=== PATIENT | female | born 1965 | race Caucasian/White ===

== ENCOUNTER → 2020-12-07 09:05 | Outpatient (CLI) | payer OTHER, SELFPAY ==
[2020-12-07 10:09] LABS: Absolute Lymphocyte Count 1.14 X10^3/uL (0.83-4.51); Absolute Neutrophil Count 2.5 X10^3/uL (2.0-7.7); Basophil# 0.06 X10^3/uL; Basophil% 1.4 % (0-1); Eosinophil# 0.13 X10^3/uL; Eosinophils% 3.1 % (0-5); Hematocrit 44.5 % (37-47); Hemoglobin 14.4 g/dL (12.0-15.0); Lymphocyte # 1.14 X10^3/ul (0.83-4.51); Lymphocyte % 27.2 % (19-41); Mean Corp Hgb Conc 32.4 g/dL (32-36); Mean Corpuscular Hgb 30.4 pg (27.0-32.0); Mean Corpuscular Volume 93.9 fL (81-99); Monocyte# 0.37 X10^3/uL; Monocyte% 8.8 % (0-10); NRBC Flagged by Analyzer 0 % (0-5); Neutrophil # 2.47 X10^3/uL (2.7-7.7); Platelet Count 289 K/mm3 (150-450); RBC Distribution Width CV 13.2 % (11.6-14.6); RBC Distribution Width SD 45.6 fl (35.1-43.9); Red Blood Count 4.74 M/mm3 (4.2-5.4); White Blood Count 4.2 K/mm3 (4.4-11.0)
[2020-12-07 10:46] LABS: ALB/GLOB Ratio 1.1 RATIO (0.9-2.4); AST(SGOT) 28 U/L (15-37); Alanine Aminotransfer ALT/SGPT 26 U/L (13-56); Albumin, Serum 3.7 g/dL (3.2-5.0); Alkaline Phosphatase 76 U/L (45-117); Anion Gap 2 (5-15); BUN 15 mg/dL (7-18); BUN/Creat Ratio 17.7 RATIO (10-20); Calcium,Total 8.8 mg/dL (8.5-10.1); Chloride 106 mmol/L (98-107); Cholesterol 328 mg/dL (200); Creatinine, Serum 0.85 mg/dL (0.55-1.02); EST Glomerular Filtration Rate 74 mL/min (>60); Est Glom Filt Rate - Afr Amer 90 mL/min (>60); Ferritin 88 ng/mL (8-252); Globulin 3.3 g/dL (2.2-4.2); Glucose 99 mg/dL (74-106); High Density Lipoprotein 68 mg/dL; Potassium 4.4 mmol/L (3.5-5.1); Sodium Level 137 mmol/L (136-145); Thyroid Stim Hormone (TSH) 4.23 uIU/mL (0.358-3.74); Triglycerides 193 mg/dL; Very Low Density Lipoprotein 39 mg/dL (5-40)
[2020-12-12 14:16] LABS: T4 Free Direct 0.93 ng/dL (0.76-1.46)
== END ==
PROVIDERS: PCP Family Medicine; Referring Provider Family Medicine; Visit Provider Family Medicine
DX: G47.9 Sleep disorder, unspecified (principal); Z13.220 Encounter for screening for lipoid disorders
CPT/HCPCS: 36415; 80053; 80061; 82728; 84439; 84443; 85025

== ENCOUNTER → 2021-03-08 09:55 | Outpatient (CLI) | payer OTHER, SELFPAY ==
[2021-03-08 12:43] LABS: Cholesterol 261 mg/dL (200); High Density Lipoprotein 65 mg/dL; T4 Free Direct 0.85 ng/dL (0.76-1.46); Thyroid Stim Hormone (TSH) 2.78 uIU/mL (0.358-3.74); Triglycerides 196 mg/dL; Very Low Density Lipoprotein 39 mg/dL (5-40)
== END ==
PROVIDERS: PCP Family Medicine; Referring Provider Family Medicine; Visit Provider Family Medicine
DX: E78.00 Pure hypercholesterolemia, unspecified (principal); R79.89 Other specified abnormal findings of blood chemistry
CPT/HCPCS: 36415; 80061; 84439; 84443

== ENCOUNTER → 2021-12-22 | Outpatient (CLI) | payer OTHER, SELFPAY | END | disposition home or self-care (01) | LOC: MFPLAB 09:39 | PROVIDERS: PCP Family Medicine; Referring Provider Family Medicine; Visit Provider Family Medicine | DX: Z00.00 Encounter for general adult medical examination without abnormal findings (principal) ==

== ENCOUNTER → 2022-02-02 | Outpatient (CLI) | payer OTHER, SELFPAY ==
--- NOTE | 2022-02-02 13:08 | CT_ITS ---
STUDY: LOW DOSE CT LUNG CANCER SCREENING REASON FOR EXAM: Female, 56 years old. TOBACCO USE. Patient smoked 1 pack per day for 30 years. RADIATION DOSAGE (If Supplied By Facility): CTDIvol = ( 3.02 ) mGy, DLP = ( 106.46 ) mGycm TECHNIQUE: No contrast was administered. Low dose technique was utilized (average mAS-38 and kVp 120). 1.25 mm axial source images with a slice interval of 1.25-mm were reconstructed in lung windows. 2.5 mm axial source images with a slice interval of 2.5-mm were reconstructed in lung windows. 5.0 mm axial source images with a slice interval of 5.0-mm were reconstructed in soft tissue windows. COMPARISON: None. NODULES: No suspicious nodules are seen. Total lung nodules (excluding granulomas): There is a 7.7 mm calcified granuloma in the anterior medial aspect of the right upper lobe. Emphysema: Hyperinflation. There is evidence of a mild degree of emphysematous changes. Increased linear markings at the right lung base suggestive of scarring. Minimal scarring at the left lung base. Endobronchial lesion: Unremarkable Aorta: Unremarkable CORONARY ARTERIES: Coronary artery calcification is not seen. Heart: Unremarkable. Pulmonary artery: Unremarkable. Mediastinal nodes: Calcified right hilar lymph nodes. Other chest and abdominal findings: CT/Low Dose CT Lung Screening IMPRESSION: Lung-RADS category 2 - Continue annual screening with LDCT in 12 months. IMPORTANT NOTES FOR USE: ACR Lung-RADS Version 1.1 Assessment Categories Release Date: 2018 Category: Coded 0-4 bases on nodule(s) with highest degree of suspicion. Negative screen is defined as categories 1 and 2; a positive screen is defined as categories 3 and 4. Category 3 and 4A nodules that are unchanged on interval CT should be coded as category 2, and individuals returned to screening in 12 months. Category 4X: Category 3 or 4 nodules with additional imaging findings that increase the suspicion of lung cancer, such as spiculation, GGN that doubles in size in 1 year, enlarged lymph notes, etc. Category Modifiers: S (significant finding unrelated to lung cancer) Electronically Signed: Marty Jimenez MD at 15:05 EDT ,
== END | disposition home or self-care (01) ==
LOC: CT 13:06
PROVIDERS: PCP Family Medicine; Referring Provider Family Medicine; Visit Provider Family Medicine
DX: R91.8 Other nonspecific abnormal finding of lung field (principal); F17.210 Nicotine dependence, cigarettes, uncomplicated; Z12.2 Encounter for screening for malignant neoplasm of respiratory organs
CPT/HCPCS: 71271

== ENCOUNTER → 2022-11-12 | Outpatient (CLI) | payer OTHER, SELFPAY ==
--- NOTE | 2022-11-12 11:46 | BI_ITS ---
MAMMOGRAPHY - BILATERAL SCREENING REASON FOR EXAM: Female, 57 years old. Routine annual screening examination. PERTINENT HISTORY: Non-contributory. TECHNIQUE: Digital bilateral breast radha (3D mammographic acquisition) in the CC and MLO projections. 2-D mediolateral oblique (MLO) and craniocaudad (CC) views of both breasts were obtained. CAD: Full Field Digital Mammography with Computer Added Detection was performed. COMPARISON: Mammogram from 12/25/2016, 01/27/2014. FINDINGS: Breast Composition: There are scattered areas of fibroglandular density. There are no dominant masses or suspicious calcifications. No other significant abnormalities are identified. There has been no significant change since the prior study. BI/SCRN MAMM (CAD)W/RADHA BILAT IMPRESSION: Stable bilateral screening mammogram. Yearly follow-up mammogram recommended. (A) ASSESSMENT CATEGORY: BIRADS Category 1: Negative. A letter regarding these results will be sent to the patient by the facility within 30 days. Approximately 10% of breast cancers are not detected by mammography. A normal mammogram should not delay biopsy of a clinically suspicious abnormality. Electronically Signed: Vick Conrad DO at 10:40 EDT ,
== END | disposition home or self-care (01) ==
PROVIDERS: PCP Family Medicine; Referring Provider Nurse Practitioner Family; Visit Provider Nurse Practitioner Family
DX: Z12.31 Encounter for screening mammogram for malignant neoplasm of breast (principal)
CPT/HCPCS: 77063; 77067

== ENCOUNTER → 2024-08-04 | Outpatient (CLI) | payer OTHER, SELFPAY ==
--- NOTE | 2024-08-04 12:58 | RAD_ITS ---
EXAM: XR Right Knee Complete, 4 or More Views CLINICAL INDICATION: PAIN ARTHRITIS TECHNIQUE: Four or more views of the right knee. COMPARISON: No relevant prior studies available. FINDINGS: BONES/JOINTS: Moderate tricompartmental degenerative changes. No acute fracture. No dislocation. SOFT TISSUES: Soft tissue swelling. RAD/Knee 4 or More Views IMPRESSION: Degenerative changes as above. Reading [facility]
--- NOTE | 2024-08-04 12:58 | RAD_ITS ---
EXAM: XR Left Knee Complete, 4 or More Views CLINICAL INDICATION: PAIN/ARTHRITIS TECHNIQUE: Four or more views of the left knee. COMPARISON: No relevant prior studies available. FINDINGS: BONES/JOINTS: Mild tricompartmental degenerative change of the knee joint. No acute fracture. No dislocation. SOFT TISSUES: Soft tissue swelling. RAD/Knee 4 or More Views IMPRESSION: Degenerative changes as above. Reading Location[facility]
[2024-08-04 16:02] LABS: Absolute Lymphocyte Count 1.87 X10^3/uL (0.83-4.51); Absolute Neutrophil Count 3.1 X10^3/uL (2.0-7.7); Basophil# 0.09 X10^3/uL; Basophil% 1.6 % (0-1); Eosinophil# 0.15 X10^3/uL; Eosinophils% 2.7 % (0-5); Hematocrit 45.7 % (37-47); Hemoglobin 15.1 g/dL (12.0-15.0); Lymphocyte # 1.87 X10^3/ul (0.83-4.51); Lymphocyte % 33.3 % (19-41); Mean Corpuscular Volume 93.8 fL (81-99); Mean Platelet Vol. 10.2 fl (6.2-12.0); Monocyte# 0.37 X10^3/uL; Monocyte% 6.6 % (0-10); NRBC Flagged by Analyzer 0 % (0-5); Neutrophil # 3.13 X10^3/uL (2.7-7.7); Neutrophil % 55.6 % (47-70); Platelet Count 327 K/mm3 (150-450); RBC Distribution Width CV 12.6 % (11.6-14.6); RBC Distribution Width SD 43.5 fl (35.1-43.9); Red Blood Count 4.87 M/mm3 (4.2-5.4); White Blood Count 5.6 K/mm3 (4.4-11.0)
[2024-08-04 18:59] LABS: ALB/GLOB Ratio 1.5 RATIO (0.9-2.4); AST(SGOT) 30 U/L (<=31); Alanine Aminotransfer ALT/SGPT 23 U/L (<=34); Albumin, Serum 4.7 g/dL (3.5-5.0); Alkaline Phosphatase 79 U/L (35-104); Anion Gap 14 (5-15); BUN 14 mg/dL (4-19); BUN/Creat Ratio 16.7 RATIO (10-20); Carbon Dioxide 25.9 mmol/L (21.0-32.0); Chloride 101 mmol/L (98-108); Cholesterol 356 mg/dL (<=200); Creatinine, Serum 0.83 mg/dL (0.70-1.20); EST Glomerular Filtration Rate 81 (>60); Glucose 92 mg/dL (70-99); High Density Lipoprotein 64 mg/dL; Low Density Lipoprotein Calc. 222 mg/dL; Potassium 3.7 mmol/L (3.3-5.1); Protein, Total 7.7 g/dL (5.9-8.4); Sodium Level 140 mmol/L (133-145); Total Bilirubin 1.21 mg/dL (0.00-1.30); Triglycerides 353 mg/dL; Very Low Density Lipoprotein 71 mg/dL (5-40)
== END | disposition home or self-care (01) ==
LOC: MTLAB 12:58
PROVIDERS: PCP Family Medicine; Referring Provider Family Medicine; Visit Provider Family Medicine
DX: M17.0 Bilateral primary osteoarthritis of knee (principal); E78.00 Pure hypercholesterolemia, unspecified
CPT/HCPCS: 36415; 73564; 80053; 80061; 84443; 85025

== ENCOUNTER → 2024-09-30 | Outpatient (CLI) | payer OTHER, SELFPAY ==
--- NOTE | 2024-09-30 13:00 | CT_ITS ---
PROCEDURE: LOW DOSE CT LUNG SCREENING 09/30/2024 REASON FOR EXAM: ACTIVE TOBACCO USE, > 30 PK YR TECHNIQUE: Low Dose CT Lung screening without contrast. Coronal and Sagittal reconstruction series were provided. One or more dose reduction techniques were used (e.g., Automated exposure control, adjustment of the mA and/or kV according to patient size, use of iterative reconstruction technique). REFERENCE LINK: [employer] Lung-RADS RADIATION DOSE SUMMARY: CTDlvol: 2.39 mGy DLP: 88.1 mGycm COMPARISON: None. FINDINGS: PULMONARY NODULES: (Only nodules >3mm are reported) 7 mm calcified granuloma in the right middle lobe. Chronic calcified right hilar lymph nodes are noted. Normal unenhanced main pulmonary artery and right and left pulmonary arteries. Normal bilateral peripheral pulmonary arteries. Normal thoracic aorta and visualized great vessels. There is no demonstrated aortic aneurysm. Normal heart and pericardium. Normal mediastinum. Normal hilar regions. Normal visualized trachea and bronchi. The remaining lungs are well expanded. Normal remaining pulmonary parenchyma. Normal pleura. Normal chest wall structures. Normal osseous structures. Normal visualized upper abdomen. CT/Low Dose CT Lung Screening IMPRESSION: Coronary artery calcification (CAC) is is absent Lung-RADS Category: 1 NEGATIVE. RECOMMEND 12-MONTH SCREENING LDCT. Other Significant Findings: None. Reading [facility] [id number]
== END | disposition home or self-care (01) ==
LOC: CT 12:59
PROVIDERS: PCP Family Medicine; Referring Provider Family Medicine; Visit Provider Family Medicine
DX: F17.200 Nicotine dependence, unspecified, uncomplicated (principal)
CPT/HCPCS: 71271